=== PATIENT | female | born 1970 | race Caucasian/White ===

== ENCOUNTER → 2021-12-17 | Outpatient (CLI) | payer BC ==
[2021-12-17 23:35] LABS: Appearance,Urine Turbid (Clear); Bacteria,Urine 3+ /HPF (None Seen); Bilirubin,Urine Negative (Negative); Blood,Urine Small (Negative); Calcium Oxalate Crystals,Urine Present /LPF (None Seen); Color,Urine Dark Yellow (Yellow); Ketones,Urine Trace mg/dL (Negative); Nitrite,Urine Negative (Negative); Specific Gravity,Urine 1.032 (1.001-1.030)
== END | disposition home or self-care (01) ==
LOC: LABPAT 15:27
PROVIDERS: ATTEND Orthopaedic Surgery
DX: Z01.812 Encounter for preprocedural laboratory examination (principal)
CPT/HCPCS: 81001; 87070

== ENCOUNTER → 2021-12-19 | Outpatient (CLI) | payer BC ==
[2021-12-19 14:01] LABS: Partial Thromboplastin Time 25.8 sec (22.0-30.0); Prothrombin Time 10.5 sec (9.0-12.0)
[2021-12-19 18:05] LABS: HCT 40.9 % (37.2-46.3); HGB 13.1 g/dL (12.0-15.0); MCV 87.4 fL (80.0-97.0); Mean Platelet Volume 10.5 fL (9.5-12.2); NRBC Per 100 WBC 0 /100 WBCS (0.0-0.0); Platelet Count 345 X 10*3/uL (140-440); RBC 4.68 X 10*6/uL (4.10-5.20); RDW 12.2 % (11.5-14.5); WBC 8.53 X 10*3/uL (4.50-10.00)
[2021-12-19 18:10] LABS: African American GFR (CKD) 88.3 (60.0-200.0); Albumin 4.3 g/dL (3.8-4.9); Albumin/Globulin Ratio 1.42 (1.60-3.17); BUN/Creat Ratio 14.06 Ratio (12.00-20.00); Blood Urea Nitrogen 12.5 mg/dL (9.0-27.0); Calcium 9.4 mg/dL (8.7-10.3); Carbon Dioxide 27.3 mmol/L (20.0-27.5); Non-African American GFR(CKD) 76.2 (60.0-200.0); Potassium 3.9 mmol/L (3.5-5.5); Total Bilirubin 0.3 mg/dL (0.30-1.20); Total Protein 7.3 g/dL (6.2-8.2)
== END | disposition home or self-care (01) ==
LOC: LABPAT 13:23
PROVIDERS: ATTEND Orthopaedic Surgery
DX: Z01.812 Encounter for preprocedural laboratory examination (principal)
CPT/HCPCS: 80053; 85027; 85610; 85730

== ENCOUNTER 2021-12-26 11:21 | Day surgery (SDC) | payer BC ==
[2021-12-21 15:41] VITALS: BMI 34.6
[~2021-12-26 11:21] MED LIST: ACETAMINOPHEN TAB 500 MG TAB PO PRN; DEXAMETHASONE SOD PHOSPHATE 10 MG/ML 1 ML VIAL IV PRN; DEXAMETHASONE SOD PHOSPHATE 4 MG/ML 1 ML VIAL IV ONE; DOCUSATE 100 MG CAP PO PRN; FAMOTIDINE 20 MG/2 ML VIAL IVP PRN; HYDROmorphone 0.5 MG/0.5 ML SYRINGE IVP PRN; KETOROLAC 15 MG/ML 1 ML VIAL IVP PRN; LACTATED RINGERS 1,000 ML IV SCH; LIDOCAINE 1% (10MG/ML) FOR IV START INTRADERMA PRN; ONDANSETRON 4 MG/2 ML VIAL IVP ONE; ONDANSETRON 4 MG/2 ML VIAL IVP PRN; ROPIVACAINE/EPI/CLONIDINE/KET 50 ML SYRINGE MISCELLANE PRN; SCOPOLAMINE 1 MG/72 HR PATCH TRANSDERM ONE; TRANEXAMIC ACID IN NACL,ISO-OS 1,000 MG in SALINE 1 100ML.BAG IVPB PRN; oxyCODONE ER 10 MG TAB.ER.12H PO PRN
[2021-12-26] MEDS ORDERED: LIDOCAINE 1% (10MG/ML) FOR IV START INTRADERMA ONE (12:02)
[2021-12-26] MEDS ORDERED: HYDROmorphone (PF) 1 MG/ML ONE (12:54)
[2021-12-26] MEDS ORDERED: fentaNYL (PF) 50 MCG/ML 2 ML AMP ONE (12:54)
[2021-12-26] MEDS ORDERED: MIDAZOLAM 2 MG/2 ML VIAL ONE (12:54)
[2021-12-26] MEDS ORDERED: ROCURONIUM 10 MG/ML (5 ML VIAL) IV ONE (12:54)
[2021-12-26] MEDS ORDERED: SUCCINYLCHOLINE CHLORIDE 100 MG/5 ML SYR IV ONE (12:54)
[2021-12-26] MEDS ORDERED: PROPOFOL 10 MG/ML 20 ML VIAL IV ONE (12:54)
[2021-12-26] MEDS ORDERED: NEOSTIGMINE 1 MG/ML 10 ML VIAL ONE (12:54)
[2021-12-26] MEDS ORDERED: LIDOCAINE 2% INJ 20 MG/ML (2 ML VIAL) ONE (12:54)
[2021-12-26] MEDS ORDERED: TRANEXAMIC ACID IN NACL,ISO-OS 1,000 MG/100 ML BAG ONE (12:54)
[2021-12-26] MEDS ORDERED: GLYCOPYRROLATE 0.2 MG/ML 2 ML VIAL ONE (12:54)
[2021-12-26 14:35] VITALS: RESP 16; TEMP 98
--- NOTE | 2021-12-26 14:36 | P.OP ---
Date of Procedure: 12/26/21 Preoperative Diagnosis: 1. 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 Loose body right knee Postoperative Diagnosis: Same Procedure(s) Performed: 1. Right revision total knee arthroplasty, polyethylene liner exchange 2. Loose body removal, right knee Implants: Popeye persona size 14 PS polyethylene Anesthesia: KIMIA Surgeon: Victor Manuel Rivera Frozen Yogurt Maker #1: Alessia Cline Estimated Blood Loss (ml): 50 IV fluids (ml): 1,000 Pathology: none sent Condition: stable Disposition: PACU Indications for Procedure: The patient is a very pleasant 51-year-old female who previously underwent a right total knee replacement by an outside provider. She has had problems with her knee since surgery. She denies any problems with infection or wound drainage. She felt a firm mass on the outside of her knee just lateral to the patella to become increasingly painful for her. She also had recurrent effusions. On exam there is a palpable firm mass in the lateral gutter of the knee just lateral to the patella, there was a large effusion, and she had global instability of the knee in both extension and flexion. Her knee was aspirated and infection was ruled out as a cause of her recurrent effusions and pain. She failed bracing and therapy. I recommended revision surgery with removal of the loose body and upsizing her polyethylene liner. We discussed the potential risks and complications of surgery including but certainly not limited to risks from anesthesia, delayed wound healing, superficial infection, deep periprosthetic joint infection, recurrent instability, stiffness, patellar tracking issues, need for further surgery, the satisfaction of surgical outcome, DVT, PE, other medical complications, and possible loss of life or limb. The patient voiced understanding of these potential complications and also analogies at other less common complications are possible. She provided both her verbal and written consent to go forward with surgery. Description of Procedure: The patient was identified in preoperative holding and the correct right leg was marked with my initials. I reviewed the consent form with the patient and her mom. All of her questions were answered. The patient was then brought back to the operating room. She was positioned on the OR table where a general anesthetic and preoperative antibiotics were given. A tourniquet was applied to the right thigh. Prior to prepping out the patient the patient's knee was examined while she was under anesthesia. There is instability in both extension and flexion. The right leg was then prepped and draped in the standard sterile fashion. Prior to surgery timeout was performed identifying the correct patient, operative extremity, and procedure. The patient's leg was then elevated, exsanguinated with an Esmarch bandage, and the tourniquet was inflated to 250 mmHg. I began by making a straight anterior incision over her prior scar. The incision was extended proximally to identify normal tissue planes. Subfascial flaps were raised medially and laterally. A medial parapatellar arthrotomy is performed. There was clear fluid within the joint. This was swabbed and sent for culture. A small amount of tissue was also taken and sent for culture. The femoral, tibial, and patellar bone all appeared to be well fixed to bone. Att ention was turned to the lateral gutter. The loose body was identified and found to be adherent to the lateral gutter tissue. It was carefully removed and appeared to be a small piece of bone. The polyliner was then carefully removed. It was a size 12 PS liner. We then trialed and a 14 PS liner felt adequate. The final 14 mm PS liner was inserted. The knee was fully extended and had flexion to 120. The knee was stable to varus and valgus stress throughout the arc of motion. The joint was then soaked in a dilute Betadine rinse. It was thoroughly irrigated and closed in layers. A sterile dressing was applied. The patient was awoken from her anesthetic, transferred to a gurney, and brought to recovery having tolerated the procedure well. Mary Cline PA-C was required as a skilled psychology assistant due to the complexity of the surgery. Plan: The patient is going to discharge home as an outpatient. She can weight- bear as tolerated on her right leg. Due to this being a revision procedure she'll be treated with 2 weeks of low dose oral suppressive antibiotics. She will need aspirin for DVT prophylaxis. Follow-up in 2 weeks for wound check and weightbearing x-rays 3 views of the right knee.
[2021-12-26] MEDS ORDERED: LACTATED RINGERS 1,000 ML IV ONE ×2 (14:55)
[2021-12-26] MEDS ORDERED: ONDANSETRON 4 MG/2 ML VIAL IVP ONE (16:30)
[2021-12-26 16:38] VITALS: BP 109/69; PULSE 74
== END 2021-12-26 17:42 | disposition home or self-care (01) ==
LOC: OR 11:21
PROVIDERS: ATTEND Orthopaedic Surgery
DX: M17.11 Unilateral primary osteoarthritis, right knee (principal); M23.41 Loose body in knee, right knee
CPT/HCPCS: 27486; 97166; 87070; 87205; 87075; C1776; J2250; J1100; J2710; J0690; J2405; J3010; J1170; J1885; J0330; J2704; J2001

== ENCOUNTER → 2023-10-29 | Outpatient (CLI) | payer BC | END | disposition home or self-care (01) | LOC: LABWHC1 13:14 | PROVIDERS: ATTEND Orthopaedic Surgery | DX: Z47.1 Aftercare following joint replacement surgery (principal); M25.561 Pain in right knee; Z96.651 Presence of right artificial knee joint; T84.84XA Pain due to internal orthopedic prosthetic devices, implants and grafts, initial encounter | CPT/HCPCS: 36415; 85379; 85652; 86140 ==

== ENCOUNTER 2024-07-26 08:36 | Day surgery (SDC) | payer BC ==
[2024-07-21 14:00] VITALS: BMI 33.2
[~2024-07-26 08:36] MED LIST changes: -ACETAMINOPHEN TAB 500 MG TAB PO PRN; -DEXAMETHASONE SOD PHOSPHATE 10 MG/ML 1 ML VIAL IV PRN; -DEXAMETHASONE SOD PHOSPHATE 4 MG/ML 1 ML VIAL IV ONE; -DOCUSATE 100 MG CAP PO PRN; -FAMOTIDINE 20 MG/2 ML VIAL IVP PRN; -HYDROmorphone 0.5 MG/0.5 ML SYRINGE IVP PRN; -KETOROLAC 15 MG/ML 1 ML VIAL IVP PRN; -ONDANSETRON 4 MG/2 ML VIAL IVP ONE; -ONDANSETRON 4 MG/2 ML VIAL IVP PRN; -ROPIVACAINE/EPI/CLONIDINE/KET 50 ML SYRINGE MISCELLANE PRN; -SCOPOLAMINE 1 MG/72 HR PATCH TRANSDERM ONE; -TRANEXAMIC ACID IN NACL,ISO-OS 1,000 MG in SALINE 1 100ML.BAG IVPB PRN; -oxyCODONE ER 10 MG TAB.ER.12H PO PRN
[2024-07-26] MEDS: LACTATED RINGERS 500 ML IV ONE (08:46)
[2024-07-26 09:09] VITALS: TEMP 97
[2024-07-26] MEDS ORDERED: LIDOCAINE 1% INJ 10MG/ML (20 ML MDV) ONE (09:21)
[2024-07-26] MEDS ORDERED: PROPOFOL 10 MG/ML 20 ML VIAL IV ONE (09:21)
[2024-07-26] MEDS ORDERED: ONDANSETRON 4 MG/2 ML VIAL ONE (09:21)
--- NOTE | 2024-07-26 09:35 | P.PCN ---
Date of Procedure: 07/26/24 Preoperative Diagnosis: Screening for colon cancer Postoperative Diagnosis: Diverticulosis Procedure(s) Performed: Colonoscopy Anesthesia: MAC Surgeon: Daniel Batista Pathology: none sent Condition: stable Disposition: same day Indications for Procedure: 54-year-old female presents today for screening colonoscopy. Has never had colonoscopy previously. Denies blood in her stool. Denies any history of colon cancer. Operative Findings: Mild diverticulosis of the sigmoid colon Description of Procedure: The patient was brought to the endoscopy suite and placed in left lateral decubitus position and adequate sedation was achieved using conscious sedation. Digital rectal exam was performed and mild internal hemorrhoids were palpated. An endoscope was then placed in the rectum and advanced to the cecum as identified by landmarks including the appendiceal orifice and the ileocecal valve. The prep was good. The colonoscope was then slowly withdrawn, examining for any mucosal abnormalities. The cecum, ascending, transverse, descending and sigmoid colon were visualized adequately. There were no large neoplastic lesions noted throughout the colon. No obvious polyps noted throughout the colon. Mild amount of diverticulosis in the sigmoid colon. Hemostasis was maintained. Retroflexion was performed in the rectum and mild internal hemorrhoids. Excess air was removed, the colonoscope withdrawn and the procedure terminated. The patient was then transferred to the recovery unit in stable condition. Repeat colonoscopy should be performed in 10 years.
[2024-07-26 10:35] VITALS: BP 123/75; PULSE 79; RESP 16
== END 2024-07-26 10:30 | disposition home or self-care (01) ==
LOC: ORWHC2ENDO 08:36
PROVIDERS: ATTEND Surgery
DX: Z12.11 Encounter for screening for malignant neoplasm of colon (principal); K57.30 Diverticulosis of large intestine without perforation or abscess without bleeding; K64.8 Other hemorrhoids; F17.210 Nicotine dependence, cigarettes, uncomplicated
CPT/HCPCS: 45378; J2405; J2003; J2704